=== PATIENT | female | born 1950 | race Two or more races ===

== ENCOUNTER 2023-07-31 18:08 | Inpatient (IN) | payer MEDICARE, OTHER ==
[~2023-07-31] VITALS: Ht 162.6 cm; Wt 72.9 kg
[2023-07-31] MEDS ORDERED: ADENOSINE 6 MG/2 ML INJ IV ONE ×3 (18:45→19:15)
[2023-07-31 19:00] VITALS: PULSE 154; RESP 19; O2SAT 95
[2023-07-31 19:20] LABS: Basophils # (auto) 0 10 ^3/uL (0-0.2); Basophils % (auto) 0.6 % (0.0-2.0); Eosinophils # (auto) 0.2 10 ^3/uL (0-0.8); Hematocrit 42.9 % (36.0-46.0); Hemoglobin 14.3 g/dL (12.2-16.2); Lymphocytes # (auto) 1.8 10 ^3/uL (0.4-5.4); Lymphocytes % (auto) 27.6 % (10.0-50.0); Mean Corpuscular Hemoglobin 30.5 pg (28.0-32.0); Mean Corpuscular Hgb Conc. 33.3 g/dL (32.0-36.0); Mean Corpuscular Volume 91.6 fL (80.0-100.0); Monocytes # (auto) 0.6 10 ^3/uL (0-1.3); Monocytes % (auto) 9.8 % (0.0-12.0); Neutrophils # (auto) 3.9 10 ^3/uL (1.6-8.6); Red Blood Cells 4.68 10^6/uL (4.0-5.20); Red Cell Distribution Width 13.3 % (11.8-14.3); White Blood Cell 6.6 10^3/uL (4.4-10.8)
[2023-07-31 19:35] VITALS: PULSE 81; RESP 25; O2SAT 93
[2023-07-31 19:38] LABS: Alanine Aminotransferase 47 U/L (7-40); Albumin 4.5 g/dL (3.2-4.8); Alkaline Phosphatase 93 U/L (46-116); Anion Gap 7 (5-15); Aspartate Aminotransferase 49 U/L (13-40); Calcium 8.9 mg/dL (8.7-10.4); Carbon Dioxide 23 mmol/L (20-30); Chloride 106 mmol/L (98-107); Glucose 215 mg/dL (74-106); Potassium 3.9 mmol/L (3.5-5.1); Sodium 136 mmol/L (136-145)
[2023-07-31 19:39] LABS: BUN/Creatinine Ratio 6.9 (10.0-20.0); Bilirubin, Total 0.5 mg/dL (0.2-1.0); Blood Urea Nitrogen < 5 mg/dL (9-23); Total Protein 7.2 g/dL (5.7-8.2)
[2023-07-31] MEDS ORDERED: ACETAMINOPHEN 325 MG TAB PO PRN (21:00)
[2023-07-31] MEDS ORDERED: NITROGLYCERIN 0.4 MG SL TAB SL PRN (21:00)
[2023-07-31] MEDS ORDERED: DEXTROSE (50%) 50ML SYRG IV PRN (21:00)
[2023-07-31] MEDS ORDERED: ONDANSETRON HCL 4 MG/2 ML VIAL IV PRN (21:00)
[2023-07-31] MEDS ORDERED: MORPHINE SULFATE INJ 2 MG/ml SYRG IV PRN (21:00)
[2023-07-31] MEDS: ACCU-CHEK COMFORT CURVE STRIP VI SCH (22:13)
[2023-07-31] MEDS: InsuLIN REG 1unit/0.01ml Soln (100units/ml) SC SCH (22:20)
[2023-07-31] MEDS ORDERED: hydrALAZINE HCL 20 MG/ML VL IV PRN (22:45)
[2023-07-31] MEDS ORDERED: ALBUTEROL SULF 2.5 MG/0.5ML(0.5%) NEB SOLN NEB PRN (22:45)
[2023-07-31 23:00] LABS: Urine WBC None Seen /hpf (0 - 5)
[2023-07-31] MEDS ORDERED: SODIUM CHLORIDE 0.9% 2,100 ML IV ONE (23:00)
[2023-07-31] MEDS ORDERED: levoFLOXacin 500MG 100 ML IV ONE (23:00)
[2023-07-31 23:11] LABS: Urine Bacteria NONE SEEN /hpf (None Seen); Urine Blood Negative /uL (Negative); Urine Clarity CLOUDY (Clear); Urine Color Colorless (Yellow); Urine Protein, UAD Negative (Negative); Urine Specific Gravity 1.014 (1.001-1.035); Urine Urobilinogen Normal (Negative); Urine pH 7.5 (5.0-8.0)
[2023-08-01] VITALS (10 sets, daily range): BP systolic 128–170; BP diastolic 50–81; PULSE 65–89; RESP 16–20; TEMP 98.3–99.6; O2SAT 93–98
[2023-08-01 01:14] LABS: COVID19 ANTIGEN SOFIA FIA NEGATIVE (NEGATIVE); Rapid Influenza A Negative (Negative); Rapid Influenza B Negative (Negative)
[2023-08-01 06:16] LABS: Basophils # (auto) 0 10 ^3/uL (0-0.2); Basophils % (auto) 0.5 % (0.0-2.0); Eosinophils # (auto) 0.3 10 ^3/uL (0-0.8); Eosinophils % (auto) 3.9 % (0.0-7.0); Hematocrit 39.1 % (36.0-46.0); Hemoglobin 12.9 g/dL (12.2-16.2); Lymphocytes # (auto) 2.2 10 ^3/uL (0.4-5.4); Lymphocytes % (auto) 32.9 % (10.0-50.0); Mean Corpuscular Hemoglobin 30.2 pg (28.0-32.0); Mean Corpuscular Hgb Conc. 33.1 g/dL (32.0-36.0); Mean Corpuscular Volume 91.2 fL (80.0-100.0); Monocytes # (auto) 0.7 10 ^3/uL (0-1.3); Monocytes % (auto) 10.1 % (0.0-12.0); Neutrophils # (auto) 3.5 10 ^3/uL (1.6-8.6); Neutrophils % (auto) 52.6 % (37.0-80.0); Red Blood Cells 4.29 10^6/uL (4.0-5.20); Red Cell Distribution Width 13.2 % (11.8-14.3); White Blood Cell 6.6 10^3/uL (4.4-10.8)
[2023-08-01 06:32] LABS: Alanine Aminotransferase 39 U/L (7-40); Albumin 3.8 g/dL (3.2-4.8); Alkaline Phosphatase 66 U/L (46-116); Anion Gap 7 (5-15); Aspartate Aminotransferase 45 U/L (13-40); Bilirubin, Total 0.5 mg/dL (0.2-1.0); Blood Urea Nitrogen 6 mg/dL (9-23); Calcium 8.7 mg/dL (8.5-10.1); Carbon Dioxide 24 mmol/L (20-30); Chloride 109 mmol/L (98-107); Glucose 132 mg/dL (74-106); Potassium 3.6 mmol/L (3.5-5.1); Sodium 140 mmol/L (136-145)
[2023-08-01] MEDS: ACCU-CHEK COMFORT CURVE STRIP VI SCH ×4 (06:47→21:33)
[2023-08-01] MEDS: InsuLIN REG 1unit/0.01ml Soln (100units/ml) SC SCH ×4 (06:51→21:34)
[2023-08-01] MEDS ORDERED: SIMV20TA20 PO (11:14)
[2023-08-01] MEDS ORDERED: METOPROLOL TARTRATE 25 MG TAB PO ONE (12:30)
[2023-08-01] MEDS ORDERED: AZITHROMYCIN 500MG/ 250ML 250 ML IV ONE (12:30)
[2023-08-01] MEDS ORDERED: cefTRIAXone 1GM/50ML D5W 50 ML IV ONE (12:30)
[2023-08-01] MEDS: ENOXAPARIN SOD 40 MG/0.4 ML SYRINGE SC SCH (12:48)
[2023-08-01] MEDS: SODIUM CHLORIDE 0.9% 1,000 ML IV SCH (12:53)
[2023-08-01] MEDS: ATORVASTATIN 20 MG TAB PO SCH (21:32)
[2023-08-01] MEDS: METOPROLOL TARTRATE 25 MG TAB PO SCH (21:33)
[2023-08-02] VITALS (11 sets, daily range): BP systolic 128–154; BP diastolic 51–69; PULSE 59–79; RESP 16–22; TEMP 97.8–98.8; O2SAT 94–99
[2023-08-02] MEDS: SODIUM CHLORIDE 0.9% 1,000 ML IV SCH ×2 (05:21→15:10)
[2023-08-02] MEDS: ACCU-CHEK COMFORT CURVE STRIP VI SCH ×4 (06:04→21:35)
[2023-08-02] MEDS: InsuLIN REG 1unit/0.01ml Soln (100units/ml) SC SCH ×4 (06:05→21:40)
[2023-08-02 06:50] LABS: Basophils # (auto) 0 10 ^3/uL (0-0.2); Basophils % (auto) 0.4 % (0.0-2.0); Eosinophils # (auto) 0.4 10 ^3/uL (0-0.8); Eosinophils % (auto) 5.9 % (0.0-7.0); Hematocrit 39.7 % (36.0-46.0); Hemoglobin 13.4 g/dL (12.2-16.2); Lymphocytes # (auto) 2.6 10 ^3/uL (0.4-5.4); Lymphocytes % (auto) 36.1 % (10.0-50.0); Mean Corpuscular Hemoglobin 30.5 pg (28.0-32.0); Mean Corpuscular Hgb Conc. 33.9 g/dL (32.0-36.0); Mean Corpuscular Volume 90.1 fL (80.0-100.0); Monocytes # (auto) 0.7 10 ^3/uL (0-1.3); Monocytes % (auto) 10.1 % (0.0-12.0); Neutrophils # (auto) 3.4 10 ^3/uL (1.6-8.6); Neutrophils % (auto) 47.5 % (37.0-80.0); Nucleated Red Blood Cells % 0.1 %; Red Blood Cells 4.41 10^6/uL (4.0-5.20); Red Cell Distribution Width 13.3 % (11.8-14.3); White Blood Cell 7.2 10^3/uL (4.4-10.8)
[2023-08-02 06:57] LABS: Alanine Aminotransferase 49 U/L (7-40); Alkaline Phosphatase 62 U/L (46-116); Anion Gap 10 (5-15); Aspartate Aminotransferase 58 U/L (13-40); BUN/Creatinine Ratio 11.9 (10.0-20.0); Bilirubin, Total 0.5 mg/dL (0.2-1.0); Blood Urea Nitrogen 7 mg/dL (9-23); Calcium 9.3 mg/dL (8.5-10.1); Carbon Dioxide 24 mmol/L (20-30); Chloride 105 mmol/L (98-107); Glucose 140 mg/dL (74-106); INR 1.04 (0.9-1.15); Partial Thromboplastin Time 28.2 SEC (24.5-34.5); Potassium 3.7 mmol/L (3.5-5.1); Prothrombin Time 10.9 sec (9.3-11.8); Sodium 139 mmol/L (136-145)
[2023-08-02 06:58] LABS: Total Protein 6.3 g/dL (5.7-8.2)
[2023-08-02] MEDS: METOPROLOL TARTRATE 25 MG TAB PO SCH ×2 (09:40→21:33)
[2023-08-02] MEDS: ENOXAPARIN SOD 40 MG/0.4 ML SYRINGE SC SCH (09:42)
[2023-08-02] MEDS: cefTRIAXone 1GM/50ML D5W 50 ML IV SCH (09:43)
[2023-08-02] MEDS: AZITHROMYCIN 500MG/ 250ML 250 ML IV SCH (09:46)
[2023-08-02] MEDS: ATORVASTATIN 20 MG TAB PO SCH (21:34)
[2023-08-03] MEDS: SODIUM CHLORIDE 0.9% 1,000 ML IV SCH (04:30)
[2023-08-03 05:00] VITALS: BP 164/82; PULSE 80; RESP 16; TEMP 98.1; O2SAT 95
[2023-08-03] MEDS: ACCU-CHEK COMFORT CURVE STRIP VI SCH ×2 (06:20→11:08)
[2023-08-03] MEDS: InsuLIN REG 1unit/0.01ml Soln (100units/ml) SC SCH ×2 (06:41→11:19)
[2023-08-03 08:00] VITALS: PULSE 74
[2023-08-03] MEDS: ENOXAPARIN SOD 40 MG/0.4 ML SYRINGE SC SCH (09:01)
[2023-08-03] MEDS: cefTRIAXone 1GM/50ML D5W 50 ML IV SCH (09:01)
[2023-08-03] MEDS: METOPROLOL TARTRATE 25 MG TAB PO SCH (09:01)
[2023-08-03 09:06] VITALS: O2SAT 97
[2023-08-03 09:18] VITALS: BP 130/59; PULSE 74; RESP 17; TEMP 98.6; O2SAT 93
[2023-08-03] MEDS: AZITHROMYCIN 500MG/ 250ML 250 ML IV SCH (11:03)
[2023-08-03 12:21] VITALS: BP 125/53; PULSE 55; RESP 18; TEMP 98; O2SAT 97
[2023-08-03 17:18] VITALS: BP 123/70; PULSE 74; RESP 18; TEMP 98; O2SAT 95
[2023-08-04] MEDS ORDERED: AZITHROMYCIN 250 MG TAB PO SCH (10:00)
== END 2023-08-03 20:55 | disposition short-term general hospital (02) | DRG 871 ==
LOC: ER 18:08 → TELE 20:52 → TELE-WESTW 08-01 09:16
PROVIDERS: ADMIT Nurse Practitioner; ATTEND Internal Medicine
PROC: 5A2204Z Restoration of Cardiac Rhythm, Single (ICD-10-PCS; principal; 2023-07-31)
DX: A41.9 Sepsis, unspecified organism (principal); J18.9 Pneumonia, unspecified organism; I47.19 Other supraventricular tachycardia; E78.5 Hyperlipidemia, unspecified; E11.9 Type 2 diabetes mellitus without complications; J45.909 Unspecified asthma, uncomplicated; Z79.899 Other long term (current) drug therapy; Z80.3 Family history of malignant neoplasm of breast; Z82.49 Family history of ischemic heart disease and other diseases of the circulatory system; Z85.3 Personal history of malignant neoplasm of breast; Z20.822 Contact with and (suspected) exposure to COVID-19
CPT/HCPCS: 36415; 71045; 80053; 81001; 82962; 83036; 83605; 84443; 84484; 85025; 85610; 85730; 87426; 87804; 93005; 93306; 96374; G0378; J0153; J1815; J1956